=== PATIENT | female | born 1955 | race Caucasian/White ===

== ENCOUNTER → 2018-07-29 | Outpatient (CLI) | payer OTHER | END | disposition home or self-care (01) | LOC: RAD 15:59 | DX: R10.13 Epigastric pain (principal) | CPT/HCPCS: 76700 ==

== ENCOUNTER 2018-11-30 12:28 | Inpatient (IN) | payer OTHER ==
[~2018-11-30] VITALS: Ht 152.4 cm; Wt 44.0 kg
[2018-11-30] MEDS ORDERED: SODIUM CHLORIDE FLUSH 10ML SYR IVF ONE (13:00)
[2018-11-30 13:24] LABS: BASOPHILS # (AUTO) 0.01 x10^3/uL (0-0.1); BASOPHILS % (AUTO) 0 % (0-1); EOSINOPHILS # (AUTO) 0.03 x10^3/uL (0-0.4); EOSINOPHILS % (AUTO) 0 % (1-7); LYMPHOCYTES # (AUTO) 1.03 x10^3/uL (1-3.4); LYMPHOCYTES % (AUTO) 12 % (22-44); MD NO; MEAN CORPUSCULAR HEMOGLOBIN 29.6 pg (27.0-34.8); MEAN CORPUSCULAR HGB CONC 32.7 g/dL (32.4-35.8); MEAN CORPUSCULAR VOLUME 90.4 fL (80-100); MEAN PLATELET VOLUME 8.3 fL (7.4-10.4); MONOCYTES # (AUTO) 0.41 x10^3/uL (0.2-0.8); MONOCYTES % (AUTO) 5 % (2-9); NEUTROPHILS # (AUTO) 7.17 x10^3/uL (1.8-6.8); NEUTROPHILS % (AUTO) 83 % (42-75); PLATELET COUNT 404 x10^3/uL (130-400); RED CELL DISTRIBUTION WIDTH 14.3 % (9.6-15.2)
[2018-11-30 13:36] LABS: ALANINE AMINOTRANSFERASE 14 U/L (12-78); ALBUMIN 3.7 g/dL (3.4-5.0); ANION GAP 10 mmol/L (5-15); CALCIUM 9.3 mg/dL (8.5-10.1); CHLORIDE 101 mmol/L (98-107); CREATININE 0.68 mg/dL (0.55-1.02)
[2018-11-30 13:38] LABS: ALKALINE PHOSPHATASE 66 U/L (45-117); BILIRUBIN,TOTAL 0.5 mg/dL (0.2-1.0); TOTAL PROTEIN 7.7 g/dL (6.4-8.2)
[2018-11-30 14:09] LABS: CULTURE INDICATED? YES; MICROSCOPIC INDICATED
--- NOTE | 2018-11-30 17:04 | NUR ---
PT TO ROOM FROM LOBBY.
--- NOTE | 2018-11-30 17:09 | NUR ---
PT TO ED FOR ABD PAIN AND CONSTIPATION. LBM 11/26/2018. DIAGNOSED WITH ULCER IN JULY, BUT DID NOT FOLLOW UP. CONNCETED TO MONITORS. VSS. AWAITING EDMD ASSESSMENT AT THIS TIME.
--- NOTE | 2018-11-30 19:15 | NUR ---
IV ESTABLISHED ADN CT COMPLETE. VSS. NO NEEDS EXPRESSED. CALL LIGHT WITHIN REACH. AWAITING RESULTS.
[2018-11-30] MEDS ORDERED: OMNIPAQUE 350 MG/ML, 100ML BOTTLE ONE (19:22)
--- NOTE | 2018-11-30 20:10 | NUR ---
all results back at this time. chart up for recheck.
--- NOTE | 2018-11-30 20:32 | NUR ---
PT RESTING IN ROOM. VSS. AWAITING UPDATE FROM PA/EDMD AND DISPO. NO NEEDS EXPRESSED. CALL LIGHT WITHIN REACH.
--- NOTE | 2018-11-30 20:50 | NUR ---
pt updated on results and poc. all questions answered at this time. vss. no needs expressed. awating bed assignment.
--- NOTE | 2018-11-30 21:50 | NUR ---
pt requests to go outside to smoke. rn offered nicotine patch instead, but pt declined. pt resting in [facility]. vss. no other needs expressed. awaiting bed assignment.
[2018-11-30] MEDS ORDERED: ONDANSETRON 2MG/ML, 2ML IVPush PRN (23:30)
[2018-11-30] MEDS ORDERED: LIDODERM 5% PATCH TD PRN (23:30)
[2018-12-01] MEDS ORDERED: LABETALOL 5 MG/ML SYRINGE IVPush PRN
[2018-12-01] MEDS: D5%-0.45% NACL 1,000 ML IV SCH ×2 (00:14→07:53)
[2018-12-01] MEDS: NICOTINE 14MG/24 HR PATCH.TD24 TD SCH ×2 (00:29→23:40)
[2018-12-01] MEDS: LORazepam 2 MG/ML, 1ML IVPush PRN ×3 (00:29→23:40)
[2018-12-01 04:06] VITALS: BP 146/90
[2018-12-01 04:38] LABS: BASOPHILS # (AUTO) 0.02 x10^3/uL (0-0.1); BASOPHILS % (AUTO) 0 % (0-1); EOSINOPHILS # (AUTO) 0.12 x10^3/uL (0-0.4); EOSINOPHILS % (AUTO) 2 % (1-7); LYMPHOCYTES # (AUTO) 1.57 x10^3/uL (1-3.4); LYMPHOCYTES % (AUTO) 21 % (22-44); MD NO; MEAN CORPUSCULAR HGB CONC 33.6 g/dL (32.4-35.8); MEAN CORPUSCULAR VOLUME 89.2 fL (80-100); MEAN PLATELET VOLUME 8.4 fL (7.4-10.4); MONOCYTES # (AUTO) 0.54 x10^3/uL (0.2-0.8); MONOCYTES % (AUTO) 7 % (2-9); NEUTROPHILS # (AUTO) 5.14 x10^3/uL (1.8-6.8); NEUTROPHILS % (AUTO) 70 % (42-75); PLATELET COUNT 369 x10^3/uL (130-400); RED BLOOD COUNT 4.19 x10^6/uL (3.82-5.3); RED CELL DISTRIBUTION WIDTH 13.8 % (9.6-15.2)
[2018-12-01 04:46] LABS: ALANINE AMINOTRANSFERASE 9 U/L (12-78); ANION GAP 6 mmol/L (5-15); CALCIUM 7.9 mg/dL (8.5-10.1); CHLORIDE 105 mmol/L (98-107); CREATININE 0.51 mg/dL (0.55-1.02)
[2018-12-01 04:48] LABS: ALKALINE PHOSPHATASE 55 U/L (45-117); BILIRUBIN,TOTAL 0.4 mg/dL (0.2-1.0); TOTAL PROTEIN 6.3 g/dL (6.4-8.2)
[2018-12-01 06:44] VITALS: BP 126/78
[2018-12-01] MEDS ORDERED: POTASSIUM CHLORIDE 20 MEQ in D5%-0.45% NACL 1,000 ML IV SCH (12:30)
[2018-12-01] MEDS: POTASSIUM CHLORIDE 20 MEQ in D5%-0.45% NACL 1,000 ML IV SCH (12:38)
[2018-12-01 13:06] VITALS: BP 149/89
[2018-12-01] MEDS ORDERED: MIDAZOLAM 1 MG/ML, 2ML ONE (17:28)
[2018-12-01] MEDS ORDERED: FENTANYL PF 250 MCG/5ML ONE (17:28)
[2018-12-01] MEDS ORDERED: ETOMIDATE 20 MG/10 ML ONE (17:31)
[2018-12-01] MEDS ORDERED: CEFOTETAN PMX 2GM/50ML 50 ML ONE (17:32)
[2018-12-01] MEDS ORDERED: PROMETHAZINE 25 MG/ML, 1ML IV PRN (18:00)
[2018-12-01] MEDS ORDERED: LABETALOL 5MG/ML, 20ML IV PRN (18:00)
[2018-12-01] MEDS ORDERED: PROMETHAZINE 12.5 MG SUPP PR PRN (18:00)
[2018-12-01] MEDS ORDERED: MORPHINE SULFATE 4 MG/ML, 1ML IVPush PRN (18:00)
[2018-12-01] MEDS ORDERED: ONDANSETRON ODT 8 MG PO PRN (18:00)
[2018-12-01] MEDS ORDERED: MEPERIDINE/PF 25MG/0.5ML IVPush PRN (18:00)
[2018-12-01] MEDS ORDERED: PROMETHAZINE 25 MG/ML, 1ML IM PRN ×2 (18:00)
[2018-12-01] MEDS ORDERED: ONDANSETRON 2MG/ML, 2ML IV PRN (18:00)
[2018-12-01] MEDS ORDERED: OXYcodone 5 MG/5 ML ORAL.SOL UDC PO PRN (18:00)
[2018-12-01] MEDS ORDERED: PROMETHAZINE 25 MG SUPP PR PRN (18:00)
[2018-12-01] MEDS ORDERED: hydrALAzine 20 MG/ML, 1ML IV PRN (18:00)
[2018-12-01] MEDS ORDERED: SUCCINYLCHOLINE 20 MG/ML, 10ML ONE (18:05)
[2018-12-01] MEDS ORDERED: DEXAMETHASONE 4 MG/ML, 1ML ONE (18:05)
[2018-12-01] MEDS ORDERED: GLYCOPYRROLATE 0.2MG/1ML, 5ML ONE (18:05)
[2018-12-01] MEDS ORDERED: ROCURONIUM 10MG/ML,5ML ONE (18:05)
[2018-12-01] MEDS ORDERED: NEOSTIGMINE 1 MG/ML, 10ML ONE (18:05)
[2018-12-01] MEDS ORDERED: ONDANSETRON 2MG/ML, 2ML ONE (18:05)
[2018-12-01] MEDS ORDERED: FENTANYL PF 100 MCG/2ML ONE ×2 (18:48→19:15)
[2018-12-01] MEDS ORDERED: HYDROmorphone 2 MG/ML, 1ML ONE (19:15)
[2018-12-01] MEDS ORDERED: hydrALAzine 20 MG/ML, 1ML ONE (19:15)
[2018-12-01] MEDS: HYDROmorphone 2 MG/ML, 1ML IVPush PRN ×3 (19:25→19:57)
[2018-12-01] MEDS: FENTANYL PF 100 MCG/2ML IV PRN ×4 (19:35→20:22)
[2018-12-01 21:05] VITALS: BP 122/76
[2018-12-01] MEDS: HYDROmorphone 2 MG/ML, 1ML IV PRN (22:32)
[2018-12-02 01:16] VITALS: BP 118/74
[2018-12-02] MEDS: POTASSIUM CHLORIDE 20 MEQ in D5%-0.45% NACL 1,000 ML IV SCH (01:26)
[2018-12-02] MEDS: HYDROmorphone 2 MG/ML, 1ML IV PRN ×6 (03:33→23:59)
[2018-12-02 06:52] VITALS: BP 134/84
[2018-12-02] MEDS: LORazepam 2 MG/ML, 1ML IVPush PRN ×2 (10:09→20:59)
[2018-12-02 10:21] LABS: ANION GAP 5 mmol/L (5-15); CALCIUM 7.5 mg/dL (8.5-10.1); CHLORIDE 107 mmol/L (98-107)
[2018-12-02] MEDS ORDERED: MAGNESIUM SULFATE PMX 4GM/100M 100 ML IV ONE (12:00)
[2018-12-02] MEDS ORDERED: POTASSIUM CHLORIDE 20 MEQ in D5%-0.45% NACL 1,000 ML IV SCH (12:30)
[2018-12-02 13:25] VITALS: BP 142/83
[2018-12-02 19:32] VITALS: BP 125/73
[2018-12-03] MEDS: NICOTINE 14MG/24 HR PATCH.TD24 TD SCH ×2 (00:03→23:51)
[2018-12-03] MEDS: HYDROmorphone 2 MG/ML, 1ML IV PRN ×6 (02:58→21:51)
[2018-12-03] MEDS: D5%-0.45NACL+KCL 20MEQ 1,000 ML IV SCH ×3 (02:59→23:48)
[2018-12-03 03:08] VITALS: BP 148/82
[2018-12-03 04:59] LABS: ANION GAP 6 mmol/L (5-15); CALCIUM 7.5 mg/dL (8.5-10.1); CHLORIDE 107 mmol/L (98-107)
[2018-12-03 05:02] LABS: CREATININE 0.41 mg/dL (0.55-1.02)
[2018-12-03 07:09] VITALS: BP 122/76
[2018-12-03 12:50] VITALS: BP 129/80
[2018-12-03 19:00] VITALS: BP 150/87
[2018-12-04] VITALS (7 sets, daily range): BP systolic 144–177; BP diastolic 87–100
[2018-12-04] MEDS: HYDROmorphone 2 MG/ML, 1ML IV PRN ×3 (03:10→13:07)
[2018-12-04 05:04] LABS: ANION GAP 6 mmol/L (5-15); CALCIUM 7.9 mg/dL (8.5-10.1); CHLORIDE 108 mmol/L (98-107); CREATININE 0.38 mg/dL (0.55-1.02)
[2018-12-04 05:10] LABS: BASOPHILS # (AUTO) 0.01 x10^3/uL (0-0.1); BASOPHILS % (AUTO) 0 % (0-1); EOSINOPHILS # (AUTO) 0.36 x10^3/uL (0-0.4); EOSINOPHILS % (AUTO) 4 % (1-7); LYMPHOCYTES # (AUTO) 0.49 x10^3/uL (1-3.4); LYMPHOCYTES % (AUTO) 5 % (22-44); MD NO; MEAN CORPUSCULAR HEMOGLOBIN 30.6 pg (27.0-34.8); MEAN CORPUSCULAR HGB CONC 34.4 g/dL (32.4-35.8); MEAN CORPUSCULAR VOLUME 89.1 fL (80-100); MEAN PLATELET VOLUME 7.8 fL (7.4-10.4); MONOCYTES % (AUTO) 4 % (2-9); NEUTROPHILS # (AUTO) 7.92 x10^3/uL (1.8-6.8); NEUTROPHILS % (AUTO) 86 % (42-75); PLATELET COUNT 297 x10^3/uL (130-400); RED BLOOD COUNT 3.37 x10^6/uL (3.82-5.3); RED CELL DISTRIBUTION WIDTH 14.6 % (9.6-15.2)
[2018-12-04] MEDS ORDERED: POTASSIUM PHOSPHATE 22 MEQ in SODIUM CHLORIDE 0.9% 500 ML IV ONE (08:00)
[2018-12-04] MEDS ORDERED: MAGNESIUM SULFATE PMX 2GM/50ML 50 ML IV ONE (08:00)
[2018-12-05 00:03] VITALS: BP 169/85
[2018-12-05] MEDS: NICOTINE 14MG/24 HR PATCH.TD24 TD SCH ×2 (00:12→23:42)
[2018-12-05] MEDS: D5%-0.45NACL+KCL 20MEQ 1,000 ML IV SCH ×2 (00:22→19:46)
[2018-12-05] MEDS: HYDROmorphone 2 MG/ML, 1ML IV PRN (04:19)
[2018-12-05 05:15] LABS: BASOPHILS # (AUTO) 0.02 x10^3/uL (0-0.1); BASOPHILS % (AUTO) 0 % (0-1); EOSINOPHILS # (AUTO) 0.32 x10^3/uL (0-0.4); EOSINOPHILS % (AUTO) 5 % (1-7); LYMPHOCYTES # (AUTO) 0.61 x10^3/uL (1-3.4); LYMPHOCYTES % (AUTO) 9 % (22-44); MD NO; MEAN CORPUSCULAR HEMOGLOBIN 29.2 pg (27.0-34.8); MEAN CORPUSCULAR HGB CONC 32.9 g/dL (32.4-35.8); MEAN CORPUSCULAR VOLUME 88.7 fL (80-100); MEAN PLATELET VOLUME 7.8 fL (7.4-10.4); MONOCYTES # (AUTO) 0.36 x10^3/uL (0.2-0.8); MONOCYTES % (AUTO) 5 % (2-9); NEUTROPHILS # (AUTO) 5.48 x10^3/uL (1.8-6.8); NEUTROPHILS % (AUTO) 81 % (42-75); PLATELET COUNT 352 x10^3/uL (130-400); RED BLOOD COUNT 3.81 x10^6/uL (3.82-5.3); RED CELL DISTRIBUTION WIDTH 14.7 % (9.6-15.2)
[2018-12-05 05:22] LABS: ANION GAP 6 mmol/L (5-15); CALCIUM 8.5 mg/dL (8.5-10.1); CHLORIDE 107 mmol/L (98-107); CREATININE 0.41 mg/dL (0.55-1.02)
[2018-12-05 07:10] VITALS: BP 161/85
[2018-12-05] MEDS ORDERED: POTASSIUM CHLORIDE 20 MEQ TAB.ER.PRT PO ONE (09:30)
[2018-12-05 13:05] VITALS: BP 161/89
[2018-12-05 18:30] VITALS: BP 173/92
[2018-12-05 21:56] VITALS: BP 163/94
[2018-12-06 02:47] VITALS: BP 164/92
[2018-12-06] MEDS: HYDROmorphone 2 MG/ML, 1ML IV PRN (03:00)
[2018-12-06 04:47] LABS: BASOPHILS # (AUTO) 0.02 x10^3/uL (0-0.1); BASOPHILS % (AUTO) 0 % (0-1); EOSINOPHILS # (AUTO) 0.54 x10^3/uL (0-0.4); EOSINOPHILS % (AUTO) 6 % (1-7); LYMPHOCYTES # (AUTO) 0.67 x10^3/uL (1-3.4); LYMPHOCYTES % (AUTO) 8 % (22-44); MD NO; MEAN CORPUSCULAR HEMOGLOBIN 29.8 pg (27.0-34.8); MEAN CORPUSCULAR HGB CONC 33.5 g/dL (32.4-35.8); MEAN CORPUSCULAR VOLUME 88.9 fL (80-100); MEAN PLATELET VOLUME 7.5 fL (7.4-10.4); MONOCYTES # (AUTO) 0.53 x10^3/uL (0.2-0.8); MONOCYTES % (AUTO) 6 % (2-9); NEUTROPHILS # (AUTO) 6.63 x10^3/uL (1.8-6.8); NEUTROPHILS % (AUTO) 79 % (42-75); PLATELET COUNT 380 x10^3/uL (130-400); RED BLOOD COUNT 3.67 x10^6/uL (3.82-5.3); RED CELL DISTRIBUTION WIDTH 14.5 % (9.6-15.2)
[2018-12-06 04:54] LABS: ALANINE AMINOTRANSFERASE 13 U/L (12-78); ALBUMIN 2.4 g/dL (3.4-5.0); ANION GAP 6 mmol/L (5-15); CALCIUM 8.3 mg/dL (8.5-10.1); CHLORIDE 107 mmol/L (98-107)
[2018-12-06 04:57] LABS: ALKALINE PHOSPHATASE 48 U/L (45-117); BILIRUBIN,TOTAL 0.3 mg/dL (0.2-1.0); CREATININE 0.45 mg/dL (0.55-1.02); TOTAL PROTEIN 5.8 g/dL (6.4-8.2)
[2018-12-06 07:50] VITALS: BP 144/80
[2018-12-06] MEDS ORDERED: AMLODIPINE 5 MG TABLET PO SCH (09:00)
[2018-12-06] MEDS: D5%-0.45NACL+KCL 20MEQ 1,000 ML IV SCH ×2 (09:55→16:17)
[2018-12-06 14:43] VITALS: BP 144/78
[2018-12-06 19:30] VITALS: BP 156/92
[2018-12-07] MEDS: NICOTINE 14MG/24 HR PATCH.TD24 TD SCH ×2 (00:22→22:37)
[2018-12-07] MEDS: D5%-0.45NACL+KCL 20MEQ 1,000 ML IV SCH ×2 (00:22→17:35)
[2018-12-07 00:58] VITALS: BP 147/82
[2018-12-07] MEDS: HYDROmorphone 2 MG/ML, 1ML IV PRN (03:20)
[2018-12-07 05:07] LABS: BASOPHILS # (AUTO) 0.02 x10^3/uL (0-0.1); BASOPHILS % (AUTO) 0 % (0-1); EOSINOPHILS # (AUTO) 0.67 x10^3/uL (0-0.4); EOSINOPHILS % (AUTO) 7 % (1-7); LYMPHOCYTES # (AUTO) 0.97 x10^3/uL (1-3.4); LYMPHOCYTES % (AUTO) 10 % (22-44); MD NO; MEAN CORPUSCULAR HEMOGLOBIN 29.7 pg (27.0-34.8); MEAN CORPUSCULAR HGB CONC 33.5 g/dL (32.4-35.8); MEAN CORPUSCULAR VOLUME 88.7 fL (80-100); MEAN PLATELET VOLUME 7.4 fL (7.4-10.4); MONOCYTES # (AUTO) 0.75 x10^3/uL (0.2-0.8); MONOCYTES % (AUTO) 8 % (2-9); NEUTROPHILS % (AUTO) 75 % (42-75); PLATELET COUNT 403 x10^3/uL (130-400); RED BLOOD COUNT 3.66 x10^6/uL (3.82-5.3); RED CELL DISTRIBUTION WIDTH 13.8 % (9.6-15.2)
[2018-12-07 05:16] LABS: ALBUMIN 2.3 g/dL (3.4-5.0); ANION GAP 4 mmol/L (5-15); CALCIUM 8.3 mg/dL (8.5-10.1); CHLORIDE 107 mmol/L (98-107)
[2018-12-07 05:22] LABS: ALANINE AMINOTRANSFERASE 14 U/L (12-78); ALKALINE PHOSPHATASE 50 U/L (45-117); BILIRUBIN,TOTAL 0.2 mg/dL (0.2-1.0); TOTAL PROTEIN 5.8 g/dL (6.4-8.2)
[2018-12-07 07:10] VITALS: BP 145/82
[2018-12-07] MEDS ORDERED: AMLODIPINE 5 MG TABLET PO SCH (09:00)
[2018-12-07] MEDS ORDERED: POTASSIUM CHLORIDE 20 MEQ TAB.ER.PRT PO ONE (12:30)
[2018-12-07 13:21] VITALS: BP 133/85
[2018-12-07 19:28] VITALS: BP 131/86
[2018-12-08 00:18] VITALS: BP 127/79
[2018-12-08 04:34] LABS: BASOPHILS # (AUTO) 0.04 x10^3/uL (0-0.1); BASOPHILS % (AUTO) 0 % (0-1); EOSINOPHILS # (AUTO) 0.67 x10^3/uL (0-0.4); EOSINOPHILS % (AUTO) 8 % (1-7); LYMPHOCYTES # (AUTO) 1.47 x10^3/uL (1-3.4); LYMPHOCYTES % (AUTO) 18 % (22-44); MD NO; MEAN CORPUSCULAR HGB CONC 33.7 g/dL (32.4-35.8); MEAN CORPUSCULAR VOLUME 88.8 fL (80-100); MEAN PLATELET VOLUME 7.2 fL (7.4-10.4); MONOCYTES # (AUTO) 0.71 x10^3/uL (0.2-0.8); MONOCYTES % (AUTO) 9 % (2-9); NEUTROPHILS % (AUTO) 65 % (42-75); PLATELET COUNT 452 x10^3/uL (130-400); RED BLOOD COUNT 3.74 x10^6/uL (3.82-5.3); RED CELL DISTRIBUTION WIDTH 14.6 % (9.6-15.2)
[2018-12-08 04:43] LABS: ALANINE AMINOTRANSFERASE 18 U/L (12-78); ALBUMIN 2.3 g/dL (3.4-5.0); ANION GAP 5 mmol/L (5-15); CALCIUM 8.1 mg/dL (8.5-10.1); CHLORIDE 107 mmol/L (98-107); CREATININE 0.37 mg/dL (0.55-1.02)
[2018-12-08 04:45] LABS: ALKALINE PHOSPHATASE 50 U/L (45-117); BILIRUBIN,TOTAL 0.4 mg/dL (0.2-1.0); TOTAL PROTEIN 5.9 g/dL (6.4-8.2)
[2018-12-08] MEDS: D5%-0.45NACL+KCL 20MEQ 1,000 ML IV SCH (06:27)
[2018-12-08 07:05] VITALS: BP 148/85
[2018-12-08] MEDS: AMLODIPINE 10 MG TAB PO SCH (09:54)
[2018-12-08 14:00] VITALS: BP 126/86
[2018-12-08 19:59] VITALS: BP 126/84
[2018-12-08 20:04] LABS: CULTURE INDICATED? YES; MICROSCOPIC INDICATED
[2018-12-08] MEDS: NICOTINE 14MG/24 HR PATCH.TD24 TD SCH (22:48)
[2018-12-09 02:00] VITALS: BP 135/78
[2018-12-09] MEDS: D5%-0.45NACL+KCL 20MEQ 1,000 ML IV SCH (05:33)
[2018-12-09 10:12] VITALS: BP 132/81
[2018-12-09 10:34] VITALS: BP 134/82
[2018-12-09] MEDS: AMLODIPINE 10 MG TAB PO SCH (10:38)
[2018-12-09 12:47] VITALS: BP 117/76
[2018-12-09] MEDS ORDERED: NICO-486 TD (15:32)
[2018-12-09] MEDS ORDERED: AMLO10TA8 PO (15:32)
== END 2018-12-09 17:03 | disposition home or self-care (01) | DRG 330 ==
LOC: ED 18:24 → EDIP 21:18 → 3NW 22:55 → DCLOUNGE 12-09 16:45
PROVIDERS: ADMIT Family Medicine; ATTEND Family Medicine
PROC: 0D1B0Z4 Bypass Ileum to Cutaneous, Open Approach (ICD-10-PCS; 2018-12-01)
PROC: 0DTF0ZZ Resection of Right Large Intestine, Open Approach (ICD-10-PCS; principal; 2018-12-01 17:00)
DX: C19 Malignant neoplasm of rectosigmoid junction (principal); N13.30 Unspecified hydronephrosis; E44.1 Mild protein-calorie malnutrition; Z68.1 Body mass index [BMI] 19.9 or less, adult; F17.213 Nicotine dependence, cigarettes, with withdrawal; D64.9 Anemia, unspecified; E83.39 Other disorders of phosphorus metabolism; E83.42 Hypomagnesemia; E87.6 Hypokalemia; I10 Essential (primary) hypertension; K52.9 Noninfective gastroenteritis and colitis, unspecified; Z80.0 Family history of malignant neoplasm of digestive organs; Z80.1 Family history of malignant neoplasm of trachea, bronchus and lung; Z82.49 Family history of ischemic heart disease and other diseases of the circulatory system; Z90.710 Acquired absence of both cervix and uterus; Z90.49 Acquired absence of other specified parts of digestive tract
CPT/HCPCS: 36415; 74021; 74177; 76770; 80048; 80053; 81001; 83690; 83735; 84100; 85025; 87077; 87086; 87186; 88307; 88309; 93005; 99285; G0378; J1100; J1170; J2250; J2405; J2710; J3010; J3480; Q9967; J0330; J0360; J2060; J3475; J3490; J7040

== ENCOUNTER 2021-02-06 08:55 | Outpatient (CLI) | payer OTHER ==
[~2021-02-06 08:55] MED LIST: AMLO-211 PO; NICO-486 TD
== END 2021-02-06 23:59 | disposition home or self-care (01) ==
LOC: ROC 08:55
PROVIDERS: ATTEND Radiology Radiation Oncology
DX: C34.31 Malignant neoplasm of lower lobe, right bronchus or lung (principal); C34.32 Malignant neoplasm of lower lobe, left bronchus or lung; N13.30 Unspecified hydronephrosis; F17.210 Nicotine dependence, cigarettes, uncomplicated; Z85.038 Personal history of other malignant neoplasm of large intestine
CPT/HCPCS: 99214; G0463